=== PATIENT | female | born 1945 | race Caucasian/White ===

== ENCOUNTER 2016-11-19 09:39 | Emergency (ER) | payer MEDICARE, OTHER ==
[~2016-11-19 09:39] MED LIST: ASPIRIN EC81 MG PO; COREG 12.5MG12.5 MG PO; LANTUS SOL100 UNIT/1 SC; LIPITOR40 MG PO; NORVASC10 MG PO; PLAVIX 75 MG TA75 MG PO; REQUIP0.25 MG PO
[2016-11-19 11:41] LABS: HEMOGLOBIN 14.2 gm/dl (12.3-15.3); RED BLOOD COUNT 4.72 M/UL (4.00-5.10)
== END 2016-11-19 19:15 | disposition home or self-care (01) ==
LOC: ER1 09:39
PROVIDERS: Emergency Medicine
DX: J20.9 Acute bronchitis, unspecified (principal); I12.9 Hypertensive chronic kidney disease with stage 1 through stage 4 chronic kidney disease, or unspecified chronic kidney disease; E11.22 Type 2 diabetes mellitus with diabetic chronic kidney disease; N18.9 Chronic kidney disease, unspecified
CPT/HCPCS: 36415; 71020; 78582; 80053; 83880; 84484; 85025; 85379; 93005; 94640; 94664; 96374; 99283; A9540; A9567; J0696; J7050

== ENCOUNTER → 2020-11-16 | Outpatient (CLI) | payer MEDICARE, OTHER ==
[~2020-11-16] MED LIST changes: +AUGMENTIN 875-1 EACH PO; +JANUVIA100 MG PO; +LISINOPRIL10 MG PO; +PROAIR HFA8.5 GM INH; +TIZANIDINE HCL2 MG PO; +VITAMIN D 40400 UNIT PO; +VITAMIN E100 UNI1 PO; +VOLTAREN100 GM TP; +ZYVOX100 MG/5 M PO
== END ==
LOC: KOH-I 10-31 10:30
DX: Z12.2 Encounter for screening for malignant neoplasm of respiratory organs (principal); F17.210 Nicotine dependence, cigarettes, uncomplicated
CPT/HCPCS: 71271

== ENCOUNTER → 2022-04-23 | Outpatient (CLI) | payer MEDICARE | LOC: HEART 5 09:09 | DX: R06.02 Shortness of breath (principal); I07.1 Rheumatic tricuspid insufficiency | CPT/HCPCS: 93306 ==

== ENCOUNTER → 2022-04-30 | Outpatient (CLI) | payer MEDICARE | LOC: KOH-I 04-24 14:00 | DX: F17.210 Nicotine dependence, cigarettes, uncomplicated (principal) | CPT/HCPCS: 71271 ==